=== PATIENT | female | born 2000 | race Caucasian/White ===

== ENCOUNTER 2022-06-21 10:19 | Emergency (ER) | payer MEDICAID ==
[~2022-06-21] VITALS: Ht 165 cm; Wt 77.1 kg
[2022-06-21] MEDS ORDERED: NS IV 1000 ML 1,000 ML IV STA (10:52)
--- NOTE | 2022-06-21 10:56 | ED GI ---
General Chief Complaint: Abdominal/GI Problems Stated Complaint: VOMITING | E COLI + Nursing Triage Note: pt presents to ed via pov from home with complaints of n/v/d x 2 days. pt reports earlier this am she was seen at [facility] walk in and diagnosed with e-coli. pt reports they did not do blood work but did take a urine and reported it had some blood in it. pt reports r sided flank/low back pain starting today. Source of Information: Patient Exam Limitations: No Limitations History of Present Illness Date Seen by Provider: Jun 21, 2022 Time Seen by Provider: 10:40 Initial Comments Patient is a 22-year-old female who presents to the emergency room with a chief complaint of lower abdominal discomfort, nausea vomiting diarrhea, discomfort with urination. Symptom onset Thursday, initially she thought she was not drin jorge enough water as she has had symptoms of "stinging" before with urination it was not a urinary tract infection. Patient states that she had symptom progression to the low back pain on , nausea vomiting on Thursday. No diarrhea. She states she went to [facility] urgent care this morning and was told she had "E. coli" in her urine. She denies fevers or chills. Most of her dis comfort is in the right lower pelvis. She has an IUD. She finished a menstrual cycle last week. No prior abdominal surgeries. No history of urinary tract infections. No abnormal vaginal discharge. She states she has a bit of a sore throat due to vomiting. Has not taken anything for the pain. Or the nausea. Takes medication for ADHD and depression. Smokes, occasional alcohol. Timing/Duration: 2-3 Days Severity/Quality: Severe, Cramping Location: RLQ, Suprapubic Radiation: Back Activities at Onset: None Associated Symptoms: Back Pain, Nausea/Vomiting, Weakness Allergies and Home Medications Allergies Coded Allergies: No Known Drug Allergies (Unverified , 06/21/22) Patient Home Medication List Home Medication List Reviewed: Yes Ondansetron (Ondansetron Odt) 4 Mg Tab.rapdis, 4 MG PO Q8H PRN for NAUSEA/VOMITING Prescribed by: EVERARDO THOMAS on 06/21/22 6223 Review of Systems Review of Systems Constitutional: see HPI, dizziness, malaise, weakness EENTM: Throat Pain Respiratory: No Symptoms Reported Cardiovascular: No Symptoms Reported Gastrointestinal: Abdominal Pain, Nausea, Poor Appetite Genitourinary: Burning Musculoskeletal: back pain Skin: no symptoms reported Psychiatric/Neurological: No Symptoms Reported All Other Systems Reviewed Negative Unless Noted: Yes Past [place]o-Fqcitv-Xwgypz Hx Patient Social History Tobacco Use?: Yes Tobacco type used: Cigarettes Smoking Status: Current Everyday Smoker Use of E-Cig and/or Vaping dev: Yes E-Cig or Vaping type used: Nicotine Substance use?: Yes Substance type: Marijuana Alcohol Use?: Yes Alcohol Frequency: Once in a while Pt feels they are or have been: No Immunizations Up To Date Influenza Vaccine Up-to-Date: No; Not Current Past Medical History Surgery/Hospitalization HX: anxiety, depression, adhd Last Menstrual Period: Jun 14, 2022 Physical Exam Vital Signs Vital Signs - First Documented 06/21/22 10:33 Temp 37.2 Pulse 110 Resp 16 B/P (MAP) 93/68 (76) Pulse Ox 97 Capillary Refill : Less Than 3 Seconds Height/Weight/BMI Height: '" Weight: lbs. oz. kg; 28.00 BMI Method: General Appearance: WD/WN, no apparent distress HEENT: PERRL/EOMI, other (Dry mucous membranes) Neck: normal inspection Respiratory: lungs clear, normal breath sounds, no respiratory distress, no accessory muscle use Cardiovascular: regular rate, rhythm, tachycardia Gastrointestinal: normal bowel sounds, soft, tenderness (Mild nonspecific discomfort with palpation in the right lower quadrant and suprapubic area. No rebound, involuntary guarding.) Back: CVA tenderness (R) (Mild lower right CVA tenderness) Neurologic/Psychiatric: alert, normal mood/affect, oriented x 3 Skin: damp, pallor (Slightly pale) Progress/Results/Core Measures Results/Orders Lab Results Laboratory Tests Test 06/21/22 10:51 06/21/22 11:02 Range/Units White Blood Count 23.3 H 4.3-11.0 10^3/uL Red Blood Count 3.94 3.80-5.11 10^6/uL Hemoglobin 12.5 11.5-16.0 g/dL Hematocrit 36 35-52 % Mean Corpuscular Volume 91 80-99 fL Mean Corpuscular Hemoglobin 32 25-34 pg Mean Corpuscular Hemoglobin Concent 35 32-36 g/dL Red Cell Distribution Width 11.7 10.0-14.5 % Platelet Count 242 130-400 10^3/uL Mean Platelet Volume 10.8 9.0-12.2 fL Immature Granulocyte % (Auto) 0 % Neutrophils (%) (Auto) 93 H 42-75 % Lymphocytes (%) (Auto) 2 L 12-44 % Monocytes (%) (Auto) 4 0-12 % Eosinophils (%) (Auto) 0 0-10 % Basophils (%) (Auto) 0 0-10 % Neutrophils # (Auto) 21.7 H 1.8-7.8 X 10^3 Lymphocytes # (Auto) 0.5 L 1.0-4.0 X 10^3 Monocytes # (Auto) 1.0 0.0-1.0 X 10^3 Eosinophils # (Auto) 0.0 0.0-0.3 10^3/uL Basophils # (Auto) 0.0 0.0-0.1 10^3/uL Immature Granulocyte # (Auto) 0.1 0.0-0.1 10^3/uL Neutrophils % (Manual) 91 % Lymphocytes % (Manual) 2 % Monocytes % (Manual) 5 % Eosinophils % (Manual) 0 % Basophils % (Manual) 0 % Band Neutrophils 2 % Elliptocytes MODERATE Sodium Level 139 135-145 MMOL/L Potassium Level 3.6 3.6-5.0 MMOL/L Chloride Level 107 98-107 MMOL/L Carbon Dioxide Level 18 L 21-32 MMOL/L Anion Gap 14 5-14 MMOL/L Blood Urea Nitrogen 10 7-18 MG/DL Creatinine 0.84 0.60-1.30 MG/DL Estimat Glomerular Filtration Rate 102 BUN/Creatinine Ratio 12 Glucose Level 155 H 70-105 MG/DL Calcium Level 9.6 8.5-10.1 MG/DL Serum Test, Qualitative NEGATIVE NEGATIVE Urine Color YELLOW Urine Clarity CLOUDY Urine pH 6.5 5-9 Urine Specific [place] 1.010 L 1.016-1.022 Urine Protein 2+ H NEGATIVE Urine Glucose (UA) NEGATIVE NEGATIVE Urine Ketones 3+ H NEGATIVE Urine Nitrite POSITIVE H NEGATIVE Urine Bilirubin 1+ H NEGATIVE Urine Urobilinogen 4.0 < = 1.0 MG/DL Urine Leukocyte Esterase 2+ H NEGATIVE Urine RBC (Auto) 3+ H NEGATIVE Urine RBC 25-50 H /HPF Urine WBC >100 H /HPF Urine Squamous Epithelial Cells 5-10 /HPF Urine Crystals NONE /LPF Urine Bacteria LARGE H /HPF Urine Casts NONE /LPF Urine Mucus NEGATIVE /LPF Urine Culture Indicated YES My Orders Orders - EVERARDO THOMAS MD Ed Iv/Invasive Line Start (06/21/22 10:52) Cbc With Automated Diff (06/21/22 10:52) Basic Metabolic Panel (06/21/22 10:52) Ua Culture If Indicated (06/21/22 10:52) Hcg,Qualitative Serum (06/21/22 10:52) Ns Iv 1000 Ml (Sodium Chloride 0.9%) (06/21/22 10:52) Ondansetron Injection (Zofran Injectio (06/21/22 11:00) Manual Differential (06/21/22 10:51) Urine Culture (06/21/22 11:02) Ceftriaxone 1 Gm Pre-Mix (Rocephin 1 Gm (06/21/22 12:15) Normal Saline 500 Ml Iv (06/21/22 13:06) Promethazine Injection (Phenergan Injec (06/21/22 13:06) Medications Given in ED Current Medications Medications Dose Ordered Sig/Lucius Route Start Time Stop Time Status Last Admin Dose Admin Ceftriaxone Sodium/Dextrose 50 ml @ 100 mls/hr ONCE ONCE IV 06/21/22 12:15 06/21/22 12:44 DC 06/21/22 12:24 100 MLS/HR Ondansetron HCl 8 mg ONCE ONCE IVP 06/21/22 11:00 06/21/22 11:02 DC 06/21/22 10:59 8 MG Vital Signs/I&O 06/21/22 10:33 Temp 37.2 Pulse 110 Resp 16 B/P (MAP) 93/68 (76) Pulse Ox 97 Blood Pressure Mean: 76 Progress Progress Note : Time: 13:07 Progress Note Patient seen and examined by me, 22-year-old female with lower abdominal discomfort, back pain, dysuria. Evaluation today includes physical exam, CBC, basic metabolic panel, serum test and urinalysis. Physical exam remarkable for very mild tenderness in the lower abdomen, right greater than left. No peritoneal signs. Normal bowel sounds. Clammy skin, slightly pale. Heart is regular slightly tachycardic. Lungs are clear. No focal neurodeficits. Differential diagnosis based on history and physical, pyelonephritis, acute appendicitis, tubo-ovarian abscess, ovarian torsion. Labs reviewed, CBC is shows significant leukocytosis at 23,000. Basic metabolic panel is normal. Urine shows signs of infection. test is negative. Patient is treated with normal saline 1 L as well as 8 mg of Zofran. After fluids and Zofran, patient is feeling much better. She is tolerating ice chips and subsequently sips of Sprite and water. 1 g of Rocephin ordered and administered. After Rocephin was finished patient became nauseous again and started vomiting. She has no physical exam findings concerning for acute appendicitis, CT considered however I did not feel like with the labs that we had in the infected urine that acute appendicitis was at the top of the list. She had a normal menstrual cycle a week ago, no history of ovarian cysts and no complaints of abnormal vaginal discharge therefore TOA and torsion are also low on the list. She does have some mild right CVA tenderness implying a sending urinary tract infection and with the vomiting and white count this more likely fits the clinical picture. Patient had an scription sent to [facility] pharmacy here in [facility] for 10 days of Bactrim which I verified from [facility]. As she is started vomiting again we will give her another half a liter of fluids as well as 25 of Phenergan and the fluids. We will also give her little Toradol. Monitor for another 30 minutes or so and then hopefully be able to discharge to home. She has been given discharge instructions both written and verbal. All questions have been sought and answered. Departure Impression Primary Impression: Pyelonephritis Disposition: 01 HOME, SELF-CARE Condition: Improved Departure-Patient Inst. Decision time for Depature: 12:25 Referrals: [facility] (PCP/Family) Primary Care Physician Patient Instructions: Kidney Infection (DC) Add. Discharge Instructions: Please drink lots of fluids to stay well hydrated. Start the Bactrim (antibiotics) tomorrow and finish the whole 10d course. You can take the zofran/ondansetron 4mg orally dissolving tablets every 8 hours as needed for nausea. Ibuprofen 3 tablets with food (600mg) every 6 hours for back pain. Pyridium for bladder spasms (this is also available as a generic over the counter). If after 48 hours of antibiotics you have continued nausea and vomiting, figh f ever or other worsening symptoms, please come back to the Emergency Department for re-evaluation. Scripts Ondansetron (Ondansetron Odt) 4 Mg Tab.rapdis 4 MG PO Q8H PRN for NAUSEA/VOMITING, #12 TAB 0 Refills Prov: EVERARDO THOMAS MD 06/21/22 EVERARDO THOMAS MD Jun 21, 2022 10:56
[2022-06-21] MEDS ORDERED: ONDANSETRON 4 MG/2 ML (SDV) Z0FRAN IVP ONE (11:00)
[2022-06-21 11:04] LABS: BASOPHILS % (AUTO) 0 % (0-10); EOSINOPHILS % (AUTO) 0 % (0-10); HEMATOCRIT 36 % (35-52); HEMOGLOBIN 12.5 g/dL (11.5-16.0); LYMPHOCYTES # (AUTO) 0.5 X 10^3 (1.0-4.0); LYMPHOCYTES % (AUTO) 2 % (12-44); MEAN CORPUSCULAR HEMOGLOBIN 32 pg (25-34); MEAN CORPUSCULAR HGB CONC 35 g/dL (32-36); MEAN CORPUSCULAR VOLUME 91 fL (80-99); MEAN PLATELET VOLUME 10.8 fL (9.0-12.2); MONOCYTES % (AUTO) 4 % (0-12); NEUTROPHILS # (AUTO) 21.7 X 10^3 (1.8-7.8); NEUTROPHILS % (AUTO) 93 % (42-75); PLATELET COUNT 242 10^3/uL (130-400); WHITE BLOOD COUNT 23.3 10^3/uL (4.3-11.0)
[2022-06-21 11:08] LABS: POTASSIUM 3.6 MMOL/L (3.6-5.0)
[2022-06-21 11:09] LABS: CALCIUM 9.6 MG/DL (8.5-10.1)
[2022-06-21 11:13] LABS: CREATININE SERUM 0.84 MG/DL (0.60-1.30)
[2022-06-21 11:14] LABS: CLARITY,URINE CLOUDY; COLOR,URINE YELLOW; GLUCOSE, URINE (UA) NEGATIVE (NEGATIVE); KETONES,URINE 3+ (NEGATIVE); LEUKOCYTE ESTERASE ,URINE 2+ (NEGATIVE); NITRITE,URINE POSITIVE (NEGATIVE); PH,URINE 6.5 (5-9); PROTEIN,URINE 2+ (NEGATIVE)
[2022-06-21 11:24] LABS: BAND NEUTROPHILS 2 %; BASOPHILS % (MANUAL) 0 %; ELLIPT/OVALOCYTES MODERATE; EOSINOPHILS % (MANUAL) 0 %; LYMPHOCYTES % (MANUAL) 2 %; MONOCYTES % (MANUAL) 5 %; NEUTROPHILS % (MANUAL) 91 %
[2022-06-21 11:34] LABS: BACTERIA,URINE LARGE /HPF; BILIRUBIN,URINE 1+ (NEGATIVE); RBC,URINE 25-50 /HPF; WBC,URINE >100 /HPF
[2022-06-21] MEDS ORDERED: cefTRIAXone 1 GM PRE-MIX 50 ML IV ONE (12:15)
[2022-06-21] MEDS ORDERED: ONDA4TAB11 PO (12:43)
[2022-06-21] MEDS ORDERED: PROMETHAZINE INJ 25 MG/ML (PHENERGAN) AMP IVP STA (13:06)
[2022-06-21] MEDS ORDERED: NS IV 500 ML 500 ML IV STA (13:06)
[2022-06-21] MEDS ORDERED: KETOROLAC 15 MG/ML VIAL IVP ONE (13:15)
[2022-06-21 14:29] VITALS: BP 108/81
== END 2022-06-21 14:29 | disposition home or self-care (01) ==
LOC: ER 10:22
DX: N12 Tubulo-interstitial nephritis, not specified as acute or chronic (principal); D72.829 Elevated white blood cell count, unspecified; F32.A Depression, unspecified; F90.9 Attention-deficit hyperactivity disorder, unspecified type; F17.210 Nicotine dependence, cigarettes, uncomplicated; Z79.899 Other long term (current) drug therapy
CPT/HCPCS: 36415; 80048; 81000; 84703; 85007; 85027; 87077; 87088; 87186